=== PATIENT | female | born 1950 | race Caucasian/White ===

== ENCOUNTER 2020-03-03 12:41 | Emergency (ER) | payer MEDICARE ==
[~2020-03-03] VITALS: Ht 165.1 cm; Wt 68.0 kg
[2020-03-03] MEDS ORDERED: BACTRIM DS1 TAB PO (13:42)
[2020-03-03] MEDS ORDERED: KEFLEX500 M1 PO (13:42)
[2020-03-03 13:49] VITALS: BP 124/67
== END 2020-03-03 13:57 | disposition home or self-care (01) ==
LOC: ED 12:41
PROC: 0X950ZZ Drainage of Left Axilla, Open Approach (ICD-10-PCS; principal; 2020-03-03)
DX: L02.412 Cutaneous abscess of left axilla (principal); I10 Essential (primary) hypertension; B95.62 Methicillin resistant Staphylococcus aureus infection as the cause of diseases classified elsewhere

== ENCOUNTER 2020-03-06 13:34 | Emergency (ER) | payer MEDICARE, MEDICAID ==
[~2020-03-06] VITALS: Ht 165.1 cm; Wt 75.0 kg
[~2020-03-06 13:34] MED LIST: BACTRIM DS1 TAB PO; KEFLEX500 M1 PO
[2020-03-06 15:25] VITALS: BP 148/74
== END 2020-03-06 15:25 | disposition home or self-care (01) ==
LOC: ED 13:34
DX: Z48.01 Encounter for change or removal of surgical wound dressing (principal)